=== PATIENT | female | born 1990 | race Caucasian/White ===

== ENCOUNTER → 2016-10-14 | Outpatient (CLI) | payer OTHER, BC ==
[~2016-10-14] MED LIST: CETI10TA24 PO; ETON1VAG VG; LORA0.5T PO; SERT100T PO
== END | disposition home or self-care (01) ==
LOC: STAR 07:26 → MERGE 08:00
PROVIDERS: ATTEND Obstetrics & Gynecology
DX: Z02.9 Encounter for administrative examinations, unspecified (principal)

== ENCOUNTER 2016-10-25 10:19 | Day surgery (SDC) | payer OTHER, BC ==
[~2016-10-25] VITALS: Ht 170.2 cm; Wt 79.2 kg
[~2016-10-25 10:19] MED LIST changes: +FENTANYL PF 250 MCG/5ML ONE; +MIDAZOLAM 1 MG/ML, 2ML ONE
[2016-10-25 10:46] VITALS: BP 139/83
[2016-10-25] MEDS ORDERED: LACTATED RINGERS 1,000 ML IV SCH (10:48)
[2016-10-25] MEDS ORDERED: SCOPOLAMINE PATCH, 1.5MG PATCH.TD72 TD ONE ×2 (11:11→11:38)
[2016-10-25] MEDS ORDERED: OXYTOCIN 10 UNITS/ML, 1ML ONE (11:17)
[2016-10-25] MEDS ORDERED: SILVER NITRATE STICK TP ONE ×2 (11:18→13:20)
[2016-10-25] MEDS ORDERED: BUPIVACAINE/PF 0.25% ONE (11:22)
[2016-10-25] MEDS ORDERED: EPINEPHRINE 1 MG/ML, 1ML ONE (11:22)
[2016-10-25] MEDS ORDERED: VASOPRESSIN 20 UNIT/ML, 1ML ONE (11:23)
[2016-10-25] MEDS ORDERED: FENTANYL PF 100 MCG/2ML IV PRN (12:00)
[2016-10-25] MEDS ORDERED: HYDROcodone/APAP 7.5-325MG/15ML UDC PO PRN (12:00)
[2016-10-25] MEDS ORDERED: OXYcodone 5 MG/5 ML ORAL.SOL UDC PO PRN (12:00)
[2016-10-25] MEDS ORDERED: ONDANSETRON 2MG/ML, 2ML IVPush PRN (12:00)
[2016-10-25] MEDS ORDERED: ACETAMINOPHEN 325 MG TABLET PO PRN (12:00)
[2016-10-25] MEDS ORDERED: MEPERIDINE/PF 25MG/0.5ML IVPush PRN (12:00)
[2016-10-25] MEDS ORDERED: PROMETHAZINE 25 MG/ML, 1ML IV PRN (12:00)
[2016-10-25] MEDS ORDERED: MIDAZOLAM 1 MG/ML, 2ML IV PRN (12:00)
[2016-10-25] MEDS ORDERED: BUPIVACAINE/PF 0.25% INFIL ONE (13:26)
[2016-10-25] MEDS ORDERED: OXYcodone 5 MG/5 ML ORAL.SOL UDC ONE (14:08)
[2016-10-25] MEDS ORDERED: ACETAMINOPHEN 650 MG/20.3 ML UDC ONE (14:08)
[2016-10-25] MEDS ORDERED: FENTANYL PF 100 MCG/2ML ONE (14:08)
[2016-10-25] MEDS: HYDROmorphone 1 MG/ML, 1ML IV PRN ×2 (14:49→15:06)
[2016-10-25] MEDS ORDERED: KETOROLAC 30 MG/1 ML ONE (15:09)
[2016-10-25] MEDS ORDERED: ROCURONIUM 10 MG/ML ONE (15:09)
[2016-10-25] MEDS ORDERED: CEFAZOLIN 1,000 MG ONE (15:09)
[2016-10-25] MEDS ORDERED: SUCCINYLCHOLINE 20 MG/ML, 10ML ONE (15:09)
[2016-10-25] MEDS ORDERED: PROPOFOL 10 MG/ML, 50ML ONE (15:09)
[2016-10-25] MEDS ORDERED: PROPOFOL 10 MG/ML, 20ML ONE (15:09)
[2016-10-25] MEDS ORDERED: DEXAMETHASONE 4 MG/ML, 1ML ONE (15:09)
[2016-10-25] MEDS ORDERED: ONDANSETRON 2MG/ML, 2ML ONE (15:09)
[2016-10-25] MEDS ORDERED: NEOSTIGMINE 1 MG/ML, 10ML ONE (15:09)
[2016-10-25] MEDS ORDERED: GLYCOPYRROLATE 0.2MG/1ML ONE (15:09)
== END 2016-10-25 16:43 | disposition home or self-care (01) ==
LOC: OUT 10:19
PROVIDERS: ATTEND Obstetrics & Gynecology
DX: Z30.2 Encounter for sterilization (principal); N84.0 Polyp of corpus uteri; F41.9 Anxiety disorder, unspecified; F32.9 Major depressive disorder, single episode, unspecified; J30.2 Other seasonal allergic rhinitis
CPT/HCPCS: 36415; 58563; 58661; 84703; 88302; J0171; J0330; J0690; J1100; J1170; J1885; J2250; J2405; J2704; J2710; J3010; J3490; J7120; J2590